=== PATIENT | female | born 1995 | race Caucasian/White ===

== ENCOUNTER 2016-05-22 21:17 | Emergency (ER) | payer BC ==
[2016-05-22 21:52] LABS: PH,URINE 6.5 (5.0-8.0); SPECIFIC GRAVITY 1.015 (1.001-1.030); URINE BILIRUBIN NEGATIVE (NEGATIVE); URINE BLOOD NEGATIVE (NEGATIVE); URINE GLUCOSE (UA) NEGATIVE (NEGATIVE); URINE LEUKOCYTE ESTERASE NEGATIVE (NEGATIVE); URINE NITRITE NEGATIVE (NEGATIVE); URINE PROTEIN 3+ (NEGATIVE); URINE UROBILINOGEN NORMAL (0-1 mg/dl)
[2016-05-22 21:58] LABS: HCG,QUALITATIVE URINE NEGATIVE
[2016-05-22 21:59] LABS: URINE APPEARANCE CLEAR; URINE COLOR LIGHT YELLOW
[2016-05-22 22:43] LABS: URINE RBC 0-2 /hpf
[2016-05-22 22:44] LABS: URINE BACTERIA 0
[2016-05-23] MEDS ORDERED: MECLIZINE HCL 25 MG TABLET ONE (00:03)
== END 2016-05-23 00:32 | disposition home or self-care (01) ==
LOC: ED 21:17
DX: R55 Syncope and collapse (principal); H81.312 Aural vertigo, left ear; L50.3 Dermatographic urticaria; Z79.899 Other long term (current) drug therapy
CPT/HCPCS: 81025; 81001; 99283 ×2; A9270